=== PATIENT | female | born 1995 | race Caucasian/White ===

== ENCOUNTER 2016-09-21 10:30 | Emergency (ER) | payer MEDICAID ==
--- NOTE | 2016-09-21 11:27 | EDPHY ---
H & P Time Seen by Provider: 09/21/16 10:50 HPI/ROS: CHIEF COMPLAINT: Sore throat, cough contract, congestion History by patient HISTORY OF PRESENT ILLNESS: 21-year-old woman with history of asthma and migraine headaches presents complaining of 5 days of URI symptoms that began with a sore throat which she says triggered a migraine and she had a bad headache and vomiting twice last week both times a resolved with Excedrin. She denies any fever. She says she noticed white spots on her throat. She subsequently developed runny nose and sinus congestion. This morning she woke up coughing and feeling like it was in her chest although she denies any difficulty breathing. She says she ran out of her albuterol inhaler so she has not tried that. She denies any known ill contacts. Her headache is completely resolved now as has her vomiting. There has been no diarrhea. She has a history of multiple strep infections in the past. REVIEW OF SYSTEMS: As in HPI, and all other systems reviewed and are negative Smoking Status: Former smoker Physical Exam: General Appearance: Alert and no distress. Head: normocephalic, atraumatic, no sinus tenderness Eyes: Pupils equal and round no injection. Ears: TM clear bilat OP: mucus membranes moist, bilateral red, positive tonsillar enlargement, no exudates Neck: no meningismus, positive bilateral cervical nodes, no submandibular nodes Respiratory: Chest is nontender, lungs are clear to auscultation. No wheezing, rales, rhonchi Cardiac: regular rate and rhythm. Gastrointestinal: Abdomen is soft and nontender, no masses, bowel sounds normal. Musculoskeletal: Neck is supple and nontender. Extremities have full range of motion and are nontender. Skin: No rashes or lesions. Constitutional: Initial Vital Signs Temperature (C) 36.8 C 09/21/16 10:47 Heart Rate 87 09/21/16 10:47 Respiratory Rate 16 09/21/16 10:47 Blood Pressure 121/80 H 09/21/16 10:47 O2 Sat (%) 97 09/21/16 10:47 O2 Delivery Mode Room Air Allergies/Adverse Reactions: No Known Allergies Allergy (Unverified 01/30/10 00:36) Home Medications: Medication Instructions Recorded Vit27&Calcium/Iron/FA 1 tab PO DAILY 05/22/13 [] Ibuprofen [Motrin (*)] 600 mg PO Q6 PRN #30 tab 09/28/14 Albuterol [Proventil Inhaler HFA 1 - 2 puffs IH Q4H #1 mdi 09/21/16 (*)] MDM/Departure - [facility] ED Course/Re-evaluation: Patient presents with URI symptoms, sore throat and cough with stable vital signs and no evidence of systemic toxicity or respiratory distress. Rapid strep was negative. We discussed home care and return precautions. - Depart Disposition: Home, Routine, Self-Care Clinical Impression: Acute upper respiratory infection Condition: Good Instructions: Upper Respiratory Infection (ED) Additional Instructions: You were seen by Dr. Pattie Garcia today. Return for any worsening or new concerns. Use your inhaler as needed for cough. Prescriptions: Albuterol [Proventil Inhaler HFA (*)] 1 - 2 puffs IH Q4H #1 mdi Referrals: SUSANNAH,DOCTOR [Other] - As per Instructions
[2016-09-21 12:29] VITALS: BP 98/56; PULSE 85; RESP 18; TEMP 98.4; O2SAT 96
== END 2016-09-21 12:28 | disposition home or self-care (01) ==
LOC: CED 10:30
DX: J06.9 Acute upper respiratory infection, unspecified (principal); Z87.891 Personal history of nicotine dependence
CPT/HCPCS: 87880-PO

== ENCOUNTER 2017-05-22 16:30 | Inpatient (IN) | payer MEDICAID ==
[2017-05-22] MEDS: NIFEdipine 10 MG CAP PO SCH ×2 (17:57→23:53)
[2017-05-22] MEDS ORDERED: LR 1,000 ML IV ONE (18:00)
[2017-05-22] MEDS ORDERED: BETAMETHASONE IM SYRINGE IM ONE (18:00)
[2017-05-22 18:32] LABS: PLATELET COUNT 199 10^3/uL (150-400)
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
[2017-05-23] MEDS ORDERED: NIFEdipine 10 MG CAP ONE (03:35)
[2017-05-23] MEDS: ACETAMINOPHEN 325 MG TAB PO PRN ×5 (03:36→20:28)
[2017-05-23] MEDS: NIFEdipine 10 MG CAP PO SCH ×5 (03:38→20:28)
[2017-05-23] MEDS ORDERED: LR 1,000 ML IV SCH (04:00)
--- NOTE | 2017-05-23 11:44 | OBPROG ---
Labor Progress Note Assessment/Plan: Assessment: at 32 3/7 weeks with short cervix s/p bmz x 2 and on porcardia gbs pending Plan: continue procardia resume vaginal prometrium continue surveillance 05/23/17 11:41 Subjective/Intrapartum Course: 05/23/17 11:42 patient is doing well overall. had increased contractions this am so was given second dose of betamethasone early. contractions have mostly resolved. hydrating well. good movement. denies headache and changes in vision. no loss of fluid or vaginal bleeding. had been taking prometrium vaginally at home but not daily as directed. Objective: 05/22/17 18:21 Patient ABO/Rh A POSITIVE 05/22/17 18:21 - Contraction Pattern Assessment Current Contraction Pattern: Other (Specify) (occasional) - FHR Assessment Bryant FHR Pattern Variability: Moderate FHR Category: 1 - AP Antepartum Course: 05/23/17 11:44 hx labor at 29 weeks with G2. delivered at 32 weeks. was receiving care at [facility] with this but wanted to transfer back to [facility]. has appointment scheduled. started on trupti injections but was too expensive so switched to vaginal progesterone. was not great at remembering to take. increased contractions, positive fibronectin and shortening cervix with current at 32 weeks. given betamethasone x 2 - Physical Exam General Appearance: WD/WN, alert, no apparent distress Neck: non-tender, full range of motion Respiratory: chest non-tender, lungs clear, normal breath sounds Cardiac/Chest: normal peripheral pulses, regular rate, rhythm Abdomen: normal bowel sounds, non-tender Extremities: normal range of motion, non-tender, normal inspection, normal capillary refill Skin: normal color, warm/dry Neuro/Psych: no motor/sensory deficits, alert, normal mood/affect, oriented x 3 Oxytocin Orders Assessment - Pre-Induction/Augmentation Assessment Gestational Age: 32 week(s) and 2 day(s) ICD10 Worksheet Patient Problems: Problems Problem Status Onset uterine contractions Acute Spontaneous vaginal delivery Acute Teen Acute
[2017-05-23] MEDS ORDERED: BETAMETHASONE IM SYRINGE IM ONE (18:00)
[2017-05-23] MEDS: PROGESTERONE 200 MG VG SCH (20:29)
[2017-05-23] MEDS ORDERED: PROGESTERONE,MICR 100 MG CAP PO SCH (21:00)
[2017-05-24] MEDS: NIFEdipine 10 MG CAP PO SCH ×6 (00:35→20:28)
[2017-05-24] MEDS: ACETAMINOPHEN 325 MG TAB PO PRN ×6 (00:35→20:27)
--- NOTE | 2017-05-24 07:49 | OBPROG ---
Labor Progress Note Assessment/Plan: Assessment: hd#3 at 32 4/7 weeks with short cervix s/p bmz x 2 and on porcardia gbs pending Plan: continue procardia vaginal prometrium continue surveillance iron pnv colace 05/24/17 07:16 Subjective/Intrapartum Course: 05/23/17 11:42 patient is doing well overall. had increased contractions this am so was given second dose of betamethasone early. contractions have mostly resolved. hydrating well. good movement. denies headache and changes in vision. no loss of fluid or vaginal bleeding. had been taking prometrium vaginally at home but not daily as directed. 05/24/17 07:50 doing well overall. slept well through the night. did have increased cramping which resolved with hydration and voiding. good movement. denies headache and changes in vision. denies loss of fluid or vaginal bleeding. tolerating vaginal progesterone. 05/24/17 07:57 Objective: 05/22/17 18:21 Patient ABO/Rh A POSITIVE 05/22/17 18:21 Group B Strep DNA POSITIVE (NEGATIVE) H 05/22/17 18:00 - SVE Membranes: Intact - Contraction Pattern Assessment Current Contraction Pattern: Other (Specify) (occasional) - FHR Assessment Bryant FHR Pattern Variability: Moderate FHR Category: 1 - AP Antepartum Course: 05/23/17 11:44 hx labor at 29 weeks with G2. delivered at 32 weeks. was receiving care at [facility] with this but wanted to transfer back to [facility]. has appointment scheduled. started on trupti injections but was too expensive so switched to vaginal progesterone. was not great at remembering to take. increased contractions, positive fibronectin and shortening cervix with current at 32 weeks. given betamethasone x 2 Oxytocin Orders Assessment - Pre-Induction/Augmentation Assessment Gestational Age: 32 week(s) and 2 day(s) ICD10 Worksheet Patient Problems: Problems Problem Status Onset uterine contractions Acute Spontaneous vaginal delivery Acute Teen Acute
[2017-05-24] MEDS ORDERED: DOCUSATE SODIUM 100 MG CAP PO PRN (07:58)
[2017-05-24] MEDS: PRENATAL VIT 1 EACH TAB PO SCH (08:16)
[2017-05-24] MEDS ORDERED: CALCIUM CARBONATE 500 MG CHEWABLE TAB PO PRN (14:50)
[2017-05-24] MEDS: PROGESTERONE 200 MG VG SCH (22:32)
[2017-05-25] MEDS: ACETAMINOPHEN 325 MG TAB PO PRN ×4 (00:29→12:37)
[2017-05-25] MEDS: NIFEdipine 10 MG CAP PO SCH ×4 (00:29→12:37)
[2017-05-25] MEDS: PRENATAL VIT 1 EACH TAB PO SCH (08:32)
--- NOTE | 2017-05-25 13:57 | OBPROG ---
Labor Progress Note Assessment/Plan: Assessment: hd#4 at 32 5/7 weeks with short cervix s/p bmz x 2 and on procardia gbs positive normal growth per MFM discharge per mfm Plan: continue procardia vaginal prometrium iron pnv follow up as scheduled on labor precautions and kick counts 05/25/17 13:53 Subjective/Intrapartum Course: 05/23/17 11:42 patient is doing well overall. had increased contractions this am so was given second dose of betamethasone early. contractions have mostly resolved. hydrating well. good movement. denies headache and changes in vision. no loss of fluid or vaginal bleeding. had been taking prometrium vaginally at home but not daily as directed. 05/24/17 07:50 doing well overall. slept well through the night. did have increased cramping which resolved with hydration and voiding. good movement. denies headache and changes in vision. denies loss of fluid or vaginal bleeding. tolerating vaginal progesterone. 05/24/17 07:57 05/25/17 13:54 patient is doing well overall. had mfm consultation today. normal growth ultrasound. sve [address] berkowitz. denies vaginal bleeding or loss of fluid. good movement. denies headache and changes in vision. long discussion about discharge options. patient would like to go home. discussed pelvic rest, kick counts, labor precautions, when to call. patient has a nob visit at [facility] scheduled for . stressed importable of continuing vaginal progesterone and procardia. Objective: 05/22/17 18:21 Patient ABO/Rh A POSITIVE 05/22/17 18:21 Group B Strep DNA POSITIVE (NEGATIVE) H 05/22/17 18:00 - SVE Dilation (cm): 3 Effacement (%): 50 Station: -1 Membranes: Intact - Contraction Pattern Assessment Current Contraction Pattern: Other (Specify) (occasional) - FHR Assessment Bryant FHR Pattern Variability: Moderate FHR Category: 1 - AP Antepartum Course: 05/23/17 11:44 hx labor at 29 weeks with G2. delivered at 32 weeks. was receiving care at [facility] with this but wanted to transfer back to [facility]. has appointment scheduled. started on trupti injections but was too expensive so switched to vaginal progesterone. was not great at remembering to take. increased contractions, positive fibronectin and shortening cervix with current at 32 weeks. given betamethasone x 2 Oxytocin Orders Assessment - Pre-Induction/Augmentation Assessment Gestational Age: 32 week(s) and 2 day(s) ICD10 Worksheet Patient Problems: Problems Problem Status Onset uterine contractions Acute Spontaneous vaginal delivery Acute Teen Acute
== END 2017-05-25 15:00 | disposition home or self-care (01) | DRG 778 ==
LOC: FLD 16:30 → OBSVTOIN 05-23 12:04 → FLD 05-23 12:37
PROVIDERS: ADMIT Obstetrics & Gynecology; ATTEND Obstetrics & Gynecology
DX: O60.03 Preterm labor without delivery, third trimester (principal); O99.820 Streptococcus B carrier state complicating pregnancy; Z3A.32 32 weeks gestation of pregnancy
CPT/HCPCS: G0378; J0702

== ENCOUNTER 2017-06-30 04:49 | Observation (INO) | payer MEDICAID ==
--- NOTE | 2017-06-30 09:46 | GHP ---
[f rep st] HISTORY AND PHYSICAL DATE OF ADMISSION: 06/30/2017 TRIAGE NOTE ADMITTING DIAGNOSIS: Intrauterine at 37-6/7 weeks' gestation with contractions, presumed a ctive labor. DISCHARGE DIAGNOSIS: Prodrome of labor. HISTORY OF PRESENT ILLNESS: The patient is a 22-year-old, 4, para 1-1-1-2, who is 37-6/7 wee ks' gestation, set by a first trimester ultrasound. She has had a course complicated by pre term labor, was admitted at 32 weeks, received betamethasone and magnesium sulfate. She was on Maken a injections in this because she has a history of a at 32 weeks, but she has discontinued. In the early childhood education instructor of the , the patient had strong labor contractions every 3-5 m inutes for over an hour. She presented to Labor and Delivery, and her cervix was 4 cm, 80%, -2. She had regular contractions that faded away, and now she is not having any contractions. She rested ov ernight. heart tones are 130s, reactive, moderate variability, category 1. She has very irreg ular contractions. Cervical exam was unchanged, and I am going to discharge her home with labor prec autions, and if she has spontaneous rupture of membranes, she needs to come in right away for presume d precipitous delivery. The patient understands these. status is reassuring. She will be dis charged home. /[id number]/MODL
== END 2017-06-30 09:31 ==
LOC: FLD 04:49
PROVIDERS: ADMIT Obstetrics & Gynecology; ATTEND Obstetrics & Gynecology
DX: O47.1 False labor at or after 37 completed weeks of gestation (principal); O09.213 Supervision of pregnancy with history of pre-term labor, third trimester; Z3A.37 37 weeks gestation of pregnancy

== ENCOUNTER 2017-07-07 02:17 | Observation (INO) | payer MEDICAID ==
--- NOTE | 2017-08-05 12:15 | GPROG ---
[f rep st] PROGRESS NOTE DICTATED DISCHARGE ORDER The patient was seen on 07/14/2017 for a rule-out labor. Her cervix was stable, she did not go into labor, and she was discharged home. /[id number]/MODL
== END 2017-07-07 05:30 | disposition home or self-care (01) ==
LOC: FLD 02:17 → UNDOADMOB 02:17 → INTOOBSV 03:48 → OBSVTOIN 03:48 → FLD 03:48
PROVIDERS: ADMIT Obstetrics & Gynecology; ATTEND Obstetrics & Gynecology
DX: Z34.90 Encounter for supervision of normal pregnancy, unspecified, unspecified trimester (principal)

== ENCOUNTER 2017-07-08 06:15 | Inpatient (IN) | payer MEDICAID ==
[2017-07-08] MEDS ORDERED: TERBUTALINE SULFATE 1 MG/ML VIAL IV PRN (06:28)
[2017-07-08] MEDS ORDERED: OLIVE OIL 118 ML BTL MISC PRN (06:28)
[2017-07-08] MEDS ORDERED: MISOPROSTOL 200 MCG TAB PR PRN (06:28)
[2017-07-08] MEDS ORDERED: LR 1,000 ML IV PRN (06:28)
[2017-07-08] MEDS ORDERED: EPSOM SALT 454 GM TP PRN (06:28)
[2017-07-08] MEDS ORDERED: OXYTOCIN 20 UNIT in LR 1,000 ML IV PRN (06:28)
[2017-07-08] MEDS ORDERED: AMPICILLIN SODIUM 1 GM in NS 50 ML IV SCH (06:30)
[2017-07-08] MEDS ORDERED: LR 500 ML IV PRN (08:09)
[2017-07-08] MEDS ORDERED: ACETAMINOPHEN 500 MG TAB PO PRN (08:10)
[2017-07-08 08:12] LABS: PLATELET COUNT 172 10^3/uL (150-400)
[2017-07-08] MEDS ORDERED: OXYTOCIN 30 UNIT in NS 500 ML IV SCH (08:15)
[2017-07-08] MEDS ORDERED: ALBUTEROL 200 PUFFS/18 GM MDI IH PRN (08:56)
[2017-07-08] MEDS ORDERED: AMPICILLIN SODIUM 2 GM in STERILE WATER INJ 25 ML IV ONE (09:00)
[2017-07-08] MEDS: IBUPROFEN 600 MG TAB PO PRN ×2 (10:10→20:05)
[2017-07-08] MEDS ORDERED: HYDROCODONE/APAP 5/325 TAB PO PRN ×3 (10:12→11:58)
[2017-07-08] MEDS ORDERED: HYDROCORTISONE 0.5% CREAM TP PRN (11:58)
[2017-07-08] MEDS ORDERED: ACETAMINOPHEN 325 MG TAB PO PRN (11:58)
[2017-07-08] MEDS ORDERED: SIMETHICONE 80 MG TAB CHEW PO PRN (11:58)
--- NOTE | 2017-07-08 11:58 | PDGENHP ---
History and Physical History and Physical: HPI: Patient is a22yo G [id number] with IUP@39-0wks that presents to L&D for elective IOL. She denies any regular/intense contractions, LOF, VB. She reports +FM. EDC: 07/15/17 which is based on Ultrasound at 9 weeks. Her is complicated by: h/o PTD @ 33wks, varicella NI, low BMI, +GBS Review of Systems: Constitutional: Denies any fever, chills, or fatigue HEENT: denies any visual changes, difficulty swallowing, hearing loss Cardiovascular: Denies any chest pain, palpitations, leg swelling Respiratory: denies any cough, wheezing, or shortness of breathe GI: Denies any nausea, vomiting, diarrhea, constipation : denies any dysuria, urgency, frequency, vaginal bleeding Musculoskeletal: denies any muscle or bone pain Skin: denies any rashes Neuro: denies any headache, seizures, lightheadedness, dizziness, or loss of consciousness Psychiatric: denies any depression, anxiety, or SI/HI thoughts HISTORY: Previous OB history: x2, PTD x1 Past medical history: asthma Past surgical history: oral surgery Medications: PNV, proair, betamethasone, fish oil Allergies (list reaction): NKDA LABS: Rh:A+ ABS: Neg Rubella: Immune HbsAg: NR HIV: NR VDRL: NR 1hr: 98 GC: Neg Chlamydia: Neg Pap: Normal GBS: positive BMI: (prepreg) 17 PHYSICAL EXAM: Constitutional: WN, A&Ox3/thin HEENT: normocephalic atraumatic, supple Heart: RRR, no murmur Chest: CTA-B Abdomen: Soft, nontender, gravid SVE: 4/50/-2 (from office) Extremities: trace edema, negative vanessa's sign Neuro: grossly normal Psych: normal affect assessment: Reassuring FHTs, baseline 140 +accels, no decels, moderate variability Contractions: toco q q 4-10minutes Assessment: 1) 22yo G [id number] with IUP@ 39-0wks (by 9wk US) 2) elective IOL 3) GBS + 4) Cat 1 FHR tracing Plan: 1) Admit to L&D 2) start IV abx 3) pitocin per protocol 4) pain management PRN 5) anticipate
--- NOTE | 2017-07-08 12:09 | OBDEL ---
Info Type: Vaginal Presentation at Delivery: Vertex L&D Analgesia/Anesthesia Type: None GBS+: Yes Antibiotic Used for + GBS: Ampicillin Intrapartum Medications: Generic Name Dose Route Start Last Admin Trade Name Freq PRN Reason Stop Dose Admin Acetaminophen 1,000 mg 07/08/17 08:10 07/08/17 08:38 Tylenol PO 01/04/18 08:09 1,000 mg Q6HRS PRN Administration Pain, Mild/Fever, Can Take PO Lactated Ringer's 1,000 mls @ 0 mls/hr 07/08/17 06:28 07/08/17 08:30 Lr IV 07/09/17 06:27 1,000 mls PRN PRN Administration SEE PROTOCOL CONDITIONS Protocol Per Protocol Oxytocin 30 unit/ Sodium 503 mls @ 0 mls/hr 07/08/17 08:15 07/08/17 08:50 Chloride IV 01/04/18 08:14 503 mls CONT BASILIA Administration Protocol Per Protocol Discontinued Medications Generic Name Dose Route Start Last Admin Trade Name Alonzoq PRN Reason Stop Dose Admin Ampicillin Sodium 2 gm/ 25 mls @ 100 mls/hr 07/08/17 09:00 07/08/17 09:20 Sterile Water IV 07/08/17 09:14 25 mls ONCE ONE Administration Indications for Delivery: Spontaneous Labor, Elective Vaginal Delivery - Delivery Provider Delivery Physician/CNM: Jennifer Avalos - Labor and Delivery Onset of Contractions Date: 07/08/17 Onset of Contractions Time: 06:00 Onset of Contractions Type: Augmented Rupture of Membranes Date: 07/08/17 Rupture of Membranes Time: 09:26 Rupture of Membranes Type: Spontaneous Amniotic Fluid Color: Clear Dilation Complete Date: 07/08/17 Dilation Complete Time: 09:32 Placenta Delivery Date: 07/08/17 Placenta Delivery Time: 09:47 Total Hours of Labor: 3 Vaginal Sponge Count Correct: Yes Vaginal Needle Count Correct: Yes Vaginal Sweep Performed: Yes EBL: 400 Delivery Events: Nuchal Cord Delivery Comment: precipitous delivery - Medications Labor Augmentation/Induction Methods Used: Pitocin Labor Augmentation/Induction Indication: Elective [place] Data LIANA: 07/15/17 Gestational Age: 39 week(s) and 0 day(s) Bryant Delivery Date: 07/08/17 Delivery Time: 09:41 Sex of Infant: Female Score (1 Min): 9 Score (5 Min): 9 ICD10 Worksheet Patient Problems: Problems Problem Status Onset Precipitate labor, with delivery Acute uterine contractions Acute Spontaneous vaginal delivery Acute Teen Acute - ICD10 Problem Qualifiers (1) Precipitate labor, with delivery
[2017-07-08] MEDS: DOCUSATE SODIUM 100 MG CAP PO PRN (20:05)
[2017-07-09] MEDS: IBUPROFEN 600 MG TAB PO PRN ×3 (05:45→18:36)
--- NOTE | 2017-07-09 09:54 | ASMTCMCOM ---
CM Note CM Note Notes: Pt delivered 07/08. Pt had reached out to Moraima at [facility] ([phone]) about two weeks to explore the possibility of adoption. Delmy Escalona in L&D spoke with pt about his as did this SW. Pt has changed her mind. [facility] was informed. Date Signed: 07/09/2017 09:53 AM Electronically Signed By:Zina Terry LCSW
--- NOTE | 2017-07-09 13:38 | OBPP ---
Progress Note Assessment/Plan: Assessment: PPD1 s/p Plan: Doing well, routine advancements. Will plan to keep until tomorrow to monitor baby due to GBS+. Baby girl doing well. Rh:A+ Rubella: Immune Subjective/ Course: 07/09/17 13:35 Carlyle is doing great - resting w baby this AM. Pain well controlled, tolerating diet. Planning on staying until tomorrow due to GBS+ status for baby girl. going alright - was just in with her this AM. Objective: 07/09/17 00:30 Patient ABO/Rh A POSITIVE 07/08/17 06:45 Temp Pulse Resp BP Pulse Ox 36.4 C 66 18 108/70 95 07/09/17 09:30 07/09/17 09:30 07/09/17 09:30 07/09/17 09:30 07/09/17 09:30 Uterine Position/Fundal Height: At Umbilicus Uterine Tone: Firm Physical Exam - Physical Exam Neuro/Psych: alert, normal mood/affect
[2017-07-10] MEDS ORDERED: IRON POLYSAC/IRON HEME 28 MG TAB PO SCH (09:00)
[2017-07-10 09:18] VITALS: BP 117/75; PULSE 80; RESP 17; TEMP 98.5; O2SAT 94
[2017-07-10] MEDS: IBUPROFEN 600 MG TAB PO PRN (09:40)
[2017-07-10] MEDS: DOCUSATE SODIUM 100 MG CAP PO PRN (09:40)
--- NOTE | 2017-07-10 11:46 | OBPP ---
Progress Note Assessment/Plan: Assessment: PPD 2 s/p mild anemia Plan: D/C home 07/10/17 11:39 Subjective/ Course: 07/09/17 13:35 Carlyle is doing great - resting w baby this AM. Pain well controlled, tolerating diet. Planning on staying until tomorrow due to GBS+ status for baby girl. going alright - was just in with her this AM. 07/10/17 11:46 Pt doing well. Reports BF well and mild cramps. Ibu managing discomfort. urinating fine. Bld is lessening. Objective: 07/09/17 00:30 Patient ABO/Rh A POSITIVE 07/08/17 06:45 Temp Pulse Resp BP Pulse Ox 36.9 C 80 17 117/75 94 07/10/17 08:00 07/10/17 08:00 07/10/17 08:00 07/10/17 08:00 07/10/17 08:00 Uterine Position/Fundal Height: Umbilicus -1 Uterine Tone: Firm Physical Exam - Physical Exam Abdomen: non-tender, soft, other (FF at umb -1) Extremities: non-tender, pedal edema (mild) Skin: normal color, warm/dry Neuro/Psych: alert, normal mood/affect
--- NOTE | 2017-07-10 11:51 | OBGCSDC ---
General Delivery Information - General Info : 4 Para: 3 Abortions: 1 Type: Vaginal L&D Analgesia/Anesthesia Type: None Admission Date: 07/08/17 Labs: Patient ABO/Rh A POSITIVE 07/08/17 06:45 Hct 35.6 % (38.0-47.0) L 07/09/17 00:30 - Hospital Course : 07/09/17 13:35 Carlyle is doing great - resting w baby this AM. Pain well controlled, tolerating diet. Planning on staying until tomorrow due to GBS+ status for baby girl. going alright - was just in with her this AM. 07/10/17 11:46 Pt doing well. Reports BF well and mild cramps. Ibu managing discomfort. urinating fine. Bld is lessening. Vaginal - Delivery Provider Delivery Physician/CNM: Jennifer Avalos - Diagnosis Labor: Augmented Rupture of Membranes Type: Spontaneous Amniotic Fluid Color: Clear Delivery Events: Nuchal Cord - Delivery EBL: 400 [place] Data LIANA: 07/15/17 Gestational Age: 39 week(s) and 2 day(s) Bryant Delivery Date: 07/08/17 Delivery Time: 09:41 Sex of Infant: Female Score (1 Min): 9 Score (5 Min): 9 Discharge Information - Discharge Information Condition: Good Instruction/Follow Up: Four Weeks, Six Weeks
== END 2017-07-10 12:30 | disposition home or self-care (01) | DRG 775 ==
LOC: FLD 06:15 → FOB 13:52
PROVIDERS: ADMIT Obstetrics & Gynecology; ATTEND Obstetrics & Gynecology
PROC: 10E0XZZ Delivery of Products of Conception, External Approach (ICD-10-PCS; principal; 2017-07-08)
PROC: 3E033VJ Introduction of Other Hormone into Peripheral Vein, Percutaneous Approach (ICD-10-PCS; principal; 2017-07-08)
DX: O62.3 Precipitate labor (principal); O99.820 Streptococcus B carrier state complicating pregnancy; O69.89X0 Labor and delivery complicated by other cord complications, not applicable or unspecified; O99.53 Diseases of the respiratory system complicating the puerperium; O26.13 Low weight gain in pregnancy, third trimester; O90.81 Anemia of the puerperium; J45.909 Unspecified asthma, uncomplicated; Z3A.39 39 weeks gestation of pregnancy; Z37.0 Single live birth
CPT/HCPCS: J0290; J2590; J3105

== ENCOUNTER 2017-09-05 16:35 | Emergency (ER) | payer MEDICAID ==
--- NOTE | 2017-09-05 16:39 | EDPHY ---
H & P Time Seen by Provider: 09/05/17 16:38 HPI/ROS: HPI CHIEF COMPLAINT: Sore throat 3 days HISTORY OF PRESENT ILLNESS: Patient otherwise healthy 22-year-old female denies any significant medical history she presents emergency room sore throat x3 days and noticed some white lesions on her posterior pharynx today. Decided come the emergency room. Denies any fever. Denies vomiting or diarrhea. Denies chest pain or shortness of breath. Denies dry cough. Past Medical History: History of strep pharyngitis Past Surgical History: No recent surgery Social History: Lives locally denies drugs alcohol tobacco Family History: Noncontributory ROS REVIEW OF SYSTEMS: A comprehensive 10 point review of systems is otherwise negative aside from elements mentioned in the history of present illness. Exam Constitutional appears well nontoxic no acute distress triage nursing summary reviewed, vital signs reviewed, awake/alert. Eyes normal conjunctivae and sclera, EOMI, PERRLA. HENT posterior pharynx shows mildly enlarged bilateral symmetrical tonsillar bed, some mild erythema, and a few white spots on the tonsillar bed, uvula is midline, no signs of [employer] RPA, moist mucus membranes, no epistaxis, neck supple/ no meningismus, no raccoon eyes. Respiratory clear to auscultation bilaterally, normal breath sounds, no respiratory distress, no wheezing. Cardiovascular rate normal, regular rhythm, no murmur, no edema, distal pulses normal. Gastrointestinal soft, non-tender, no rebound, no guarding, normal bowel sounds, no distension, no pulsatile mass. Genitourinary no CVA tenderness. Musculoskeletal no midline vertebral tenderness, full range of motion, no calf swelling, no tenderness of extremities, no meningismus, good pulses, neurovascularly intact. Skin pink, warm, & dry, no rash, skin atraumatic. Neurologic awake, alert and oriented x 3, AAOx3, moves all 4 extremities equally, motor intact, sensory intact, CN II-XII intact, normal cerebellar, normal vision, normal speech. Psychiatric normal mood/affect. Heme/Lymph/Immune no lymphadenopathy. Differential Diagnosis: Includes but is not limited to in a particular order viral pharyngitis, strep pharyngitis, mono, upper respiratory tract infection, tonsillar stones Medical Decision Making: Plan for this patient rapid strep sent. However will be inclined to treat given erythema and exudate. Will start on azithromycin, Decadron ibuprofen. Patient is not drooling. No change in phonation. No signs of [employer] SU[employer] RPA on exam. Will treat for strep pharyngitis. Patient understands drink lots of fluids. Understands return emergency room if there is worsening symptoms includes I fever, worsening sore throat, vomiting or any further symptoms questions or concerns. Source: Patient - Personal History Tetanus Vaccine Date: 09/23/14 - Medical/Surgical History Hx Asthma: No Hx Chronic Respiratory Disease: No Hx Diabetes: No Hx Cardiac Disease: No Hx Renal Disease: No Hx Cirrhosis: No Hx Alcoholism: No Hx HIV/AIDS: No Hx Splenectomy or Spleen Trauma: No Other PMH: strep and migraines, 2 vaginal deliveries, - Social History Smoking Status: Never smoked Allergies/Adverse Reactions: No Known Allergies Allergy (Verified 09/05/17 16:39) Home Medications: Medication Instructions Recorded Azithromycin [Zithromax] 250 mg PO DAILY #6 tab 09/05/17 Dexamethasone [Decadron 4 MG (*)] 8 mg PO DAILY #3 tab 09/05/17 Ibuprofen [Motrin (*)] 800 mg PO Q6-8PRN #10 tab 09/05/17 Departure - Departure Disposition: Home, Routine, Self-Care Clinical Impression: Pharyngitis Qualifiers: Pharyngitis/tonsillitis etiology: streptococcus Qualified Code(s): J02.0 - Streptococcal pharyngitis Condition: Good Instructions: Pharyngitis (ED) Additional Instructions: 1. Drink lots of cold fluids. 2. Antibiotics as prescribed. 3. Anti-inflammatories as prescribed Referrals: NONE *PRIMARY CARE P,. [Primary Care Provider] - As per Instructions Prescriptions: Azithromycin [Zithromax] 250 mg PO DAILY #6 tab Dexamethasone [Decadron 4 MG (*)] 8 mg PO DAILY #3 tab Ibuprofen [Motrin (*)] 800 mg PO Q6-8PRN #10 tab
[2017-09-05 16:43] VITALS: BP 120/76
== END 2017-09-05 16:56 | disposition home or self-care (01) ==
LOC: CED 16:35
DX: J02.0 Streptococcal pharyngitis (principal)
CPT/HCPCS: 87880-PO

== ENCOUNTER 2018-03-18 15:34 | Emergency (ER) | payer MEDICAID ==
[2018-03-18 15:52] VITALS: BP 113/68
--- NOTE | 2018-03-18 15:52 | EDPHY ---
H & P Time Seen by Provider: 03/18/18 15:46 HPI/ROS: CHIEF COMPLAINT: Sinus congestion, sore throat, cough HISTORY OF PRESENT ILLNESS: The patient is a 22-year-old female with a history of asthma comes to the emergency department complaining of sore throat that began 4 days ago. She has had a mild nonproductive cough. She has also had sinus congestion and increasing use of her inhaler over the last couple of days. No fever. No GI symptoms. No chest pain. Severity: Moderate Modifying factors: Improves with albuterol REVIEW OF SYSTEMS: Constitutional: denies: chills, fever, recent illness, recent injury EENTM: See HPI Respiratory: See HPI Cardiac: denies: chest pain, irregular heart rate, lightheadedness, palpitations Gastrointestinal/Abdominal: denies: abdominal pain, diarrhea, nausea, vomiting, blood streaked stools Genitourinary: denies: dysuria, frequency, hematuria, pain Musculoskeletal: denies: joint pain, muscle pain Skin: denies: lesions, rash, jaundice, bruising Neurological: denies: headache, numbness, paresthesia, tingling, dizziness, weakness Hematologic/Lymphatic: denies: blood clots, easy bleeding, easy bruising Immunologic/allergic: denies: HIV/AIDS, transplant 10 systems reviewed and negative except as noted EXAM: GENERAL: Well-appearing, well-nourished and in no acute distress. HEAD: Atraumatic, normocephalic. EYES: Pupils equal round and reactive to light, extraocular movements intact, sclera anicteric, conjunctiva are normal. ENT: TMs normal, nares patent, oropharynx erythematous without exudates. Moist mucous membranes. NECK: Normal range of motion, supple without lymphadenopathy or JVD. LUNGS: Breath sounds clear to auscultation bilaterally and equal. No wheezes rales or rhonchi. HEART: Regular rate and rhythm without murmurs, rubs or gallops. ABDOMEN: Soft, nontender, normoactive bowel sounds. No guarding, no rebound. No masses appreciated. BACK: No CVA tenderness, no spinal tenderness, step-offs or deformities EXTREMITIES: Normal range of motion, no pitting or edema. No clubbing or cyanosis. NEUROLOGICAL: Cranial nerves II through XII grossly intact. Normal speech, normal gait. 5/5 strength, normal movement in all extremities, normal sensation , normal reflexes PSYCH: Normal mood, normal affect. SKIN: Warm, dry, normal turgor, no visible rashes or lesions. Source: Patient Exam Limitations: No limitations - Personal History Tetanus Vaccine Date: 09/23/14 - Medical/Surgical History Hx Asthma: No Hx Chronic Respiratory Disease: No Hx Diabetes: No Hx Cardiac Disease: No Hx Renal Disease: No Hx Cirrhosis: No Hx Alcoholism: No Hx HIV/AIDS: No Hx Splenectomy or Spleen Trauma: No Other PMH: Has asthma, migraines, 2 vaginal deliveries, - Family History Significant Family History: No pertinent family hx - Social History Smoking Status: Never smoked Alcohol Use: Sober Drug Use: None Constitutional: Initial Vital Signs Temperature (C) 36.7 C 03/18/18 15:39 Heart Rate 76 03/18/18 15:39 Respiratory Rate 18 03/18/18 15:39 Blood Pressure 113/68 03/18/18 15:39 O2 Sat (%) 96 03/18/18 15:39 O2 Delivery Mode Room Air Allergies/Adverse Reactions: No Known Allergies Allergy (Verified 03/18/18 15:38) Home Medications: Medication Instructions Recorded Albuterol 03/18/18 Medical Decision Making - Diagnostics Imaging Results: Imaging Impressions Chest X-Ray 03/18/18 15:49 Impression: Suspect airways disease. No pneumonia. Imaging: Discussed imaging studies w/ mail caller Radiologist ED Course/Re-evaluation: 4:20 p.m. We discussed the x-ray and strep swab which are reassuring. The patient symptoms are consistent with viral URI. She did receive a dose of Decadron which should help with her asthma symptoms. She is currently not wheezing or hypoxic. We discussed treatment for viral infections including sleep and hydration. She is happy with this and declines further workup or testing. We also discussed decongestants [id number]. Differential Diagnosis: Partial list of the Differential diagnosis considered include but were not limited to; upper respiratory tract infection, strep throat, pneumonia, bronchitis and although unlikely based on the history and physical exam, I also considered PE, acute coronary disease, pneumothorax. I discussed these differential diagnoses and the plan with the patient as well as the usual and expected course. The patient understands that the diagnosis is provisional and that in medicine we are not always correct and that further workup is often warranted. Usual and customary warnings were given. All of the patient's questions were answered. The patient was instructed to return to the emergency department should the symptoms at all worsen or return, otherwise to followup with the physician as we discussed. - Data Points Medications Given: Discontinued Medications Dexamethasone (Decadron) 10 mg PO EDNOW ONE Stop: 03/18/18 15:50 Last Admin: 03/18/18 16:00 Dose: 10 mg Point of Care Test Results: Strep Strep Throat Swab Collection 03/18/18 Date Strep Throat Swab Swab 16:00 Collection Time Strep Result Not Detected Departure - Departure Disposition: Home, Routine, Self-Care Clinical Impression: Upper respiratory tract infection Qualifiers: URI type: unspecified viral URI Qualified Code(s): J06.9 - Acute upper respiratory infection, unspecified Condition: Fair Instructions: Upper Respiratory Infection (ED) Referrals: [facility] [Other] - As per Instructions
[2018-03-18] MEDS: DEXAMETHASONE 4 MG TAB PO ONE (16:00)
== END 2018-03-18 16:26 | disposition home or self-care (01) ==
LOC: CED 15:34
DX: J06.9 Acute upper respiratory infection, unspecified (principal); J45.909 Unspecified asthma, uncomplicated
CPT/HCPCS: 71046-PO

== ENCOUNTER 2018-07-31 16:35 | Emergency (ER) | payer MEDICAID ==
--- NOTE | 2018-07-31 17:38 | EDPHY ---
H & P Stated Complaint: L foot pain after fall 07/30/18 Time Seen by Provider: 07/31/18 16:44 HPI/ROS: 23-year-old female presents complaining of left ankle and foot pain. She states last night she was getting out of the car she slipped on ice and rolled her ankle. She noticed this morning that when she walks on it is quite painful. Review of systems As per HPI General no fever no chills no weakness HEENT no eye pain no eye discharge. No eye redness, no sore throat Respiratory no cough, no shortness of breath Cardiac no chest pain, no peripheral edema GI no abdominal pain, no diarrhea, no constipation, no nausea, no vomiting no flank pain, no hematuria, no dysuria Musculoskeletal no myalgias, positive joint pain Heme no easy bruising, no easy bleeding Endo no polyuria, no polydipsia Skin no rashes, no pruritus Neuro no syncope, no dizziness, no headaches Psych is no suicidal ideation, no homicidal ideation Source: Patient Exam Limitations: No limitations - Personal History LMP (Females 10-55): IUD In Place Current Tetanus Diphtheria and Acellular Pertussis (TDAP): Yes Tetanus Vaccine Date: 2014 - Medical/Surgical History Hx Asthma: Yes Hx Chronic Respiratory Disease: No Hx Diabetes: No Hx Cardiac Disease: No Hx Renal Disease: No Hx Cirrhosis: No Hx Alcoholism: No Hx HIV/AIDS: No Hx Splenectomy or Spleen Trauma: No Other PMH: asthma, migraines, 3 vaginal deliveries. - Family History Significant Family History: No pertinent family hx - Social History Smoking Status: Former smoker Alcohol Use: Occasionally - Physical Exam Exam: A 23-year-old female Alert and oriented in no acute distress nontoxic appearance afebrile Atraumatic normocephalic Extraocular muscles intact, anicteric Neck is supple Lungs clear to auscultation no respiratory distress Heart regular rate and rhythm without murmur rub or gallop Abdomen normoactive bowel sounds Extremities no cyanosis clubbing or edema Ankle-no swelling, no ecchymosis positive tenderness to palpation a just inferior to medial malleolus, no instability, sensation intact, good capillary refill, dorsalis pedis and posterior tibialis intact Constitutional: Initial Vital Signs Temperature (C) 36.6 C 07/31/18 16:38 Heart Rate 97 07/31/18 16:38 Respiratory Rate 16 07/31/18 16:38 Blood Pressure 124/80 H 07/31/18 16:38 O2 Sat (%) 100 07/31/18 16:38 O2 Delivery Mode Room Air Allergies/Adverse Reactions: No Known Allergies Allergy (Verified 07/31/18 16:39) Home Medications: Medication Instructions Recorded NK [No Known Home Meds] 07/31/18 Medical Decision Making - Diagnostics Imaging Results: Imaging Impressions Foot X-Ray 07/31/18 16:50 Impression: Nothing acute identified. 2. Left Ankle, 2 views History: Pain post trauma. Fall yesterday. Findings: No fracture or malalignment is identified. The ankle mortise is normal in width. The talar dome is intact. There is no ankle joint effusion. Overall mineralization is normal. Impression: Negative. Ankle X-Ray 07/31/18 16:51 Impression: Nothing acute identified. 2. Left Ankle, 2 views History: Pain post trauma. Fall yesterday. Findings: No fracture or malalignment is identified. The ankle mortise is normal in width. The talar dome is intact. There is no ankle joint effusion. Overall mineralization is normal. Impression: Negative. ED Course/Re-evaluation: Patient seen and evaluated for left ankle pain and foot pain X-rays negative Impression Acute left ankle sprain Plan Ankle stirrup Rest ice elevation Follow-up with primary care Differential Diagnosis: Differential diagnosis considered but not limited to: Ankle sprain, foot sprain, metatarsal fracture, tib-fib fracture Departure - Departure Disposition: Home, Routine, Self-Care Clinical Impression: Left ankle sprain Condition: Good Instructions: Ankle Sprain (ED), Ankle Stirrup Splint (ED) Referrals: NONE *PRIMARY CARE P,. [Primary Care Provider] - As per Instructions [facility],. [Clinic] - As per Instructions
[2018-07-31 17:50] VITALS: BP 122/83
== END 2018-07-31 17:49 | disposition home or self-care (01) ==
LOC: CED 16:35
DX: S93.402A Sprain of unspecified ligament of left ankle, initial encounter (principal); W00.0XXA Fall on same level due to ice and snow, initial encounter; J45.909 Unspecified asthma, uncomplicated; G43.909 Migraine, unspecified, not intractable, without status migrainosus; Z87.891 Personal history of nicotine dependence; Z97.5 Presence of (intrauterine) contraceptive device
CPT/HCPCS: 73600-PO; 73630-PO; 99283-ER; L4350-ER